=== PATIENT | male | born 1990 | race African-American/Black ===

== ENCOUNTER 2018-06-02 18:48 | Emergency (ER) | payer OTHER ==
--- NOTE | 2018-06-02 19:09 | PDOC ---
Rapid Medical Evaluation Time Seen by Provider: 06/02/18 19:07 Medical Evaluation: Allergies Allergy/AdvReac Type Severity Reaction Status Date / Time No Known Allergies Allergy Verified 06/02/18 18:53 06/02/18 19:07 I have performed a brief in-person evaluation of this patient. The patient presents with a chief complaint of:Chest pain and cough started when driving Pertinent physical exam findings:NAD Chest clear I have ordered the following:nothing The patient will proceed to the ED for further evaluation. Discharge Disposition - Diagnosis Chest pain - Referrals - Patient Instructions - Post Discharge Activity
[2018-06-02 19:10] VITALS: BP 131/71; PULSE 84; TEMP 98.4; BMI 21.9
--- NOTE | 2018-06-02 19:16 | PDOC ---
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 This has never happened before. the LUE radiation was gone after 10 min but the mild cp persists, alleviated by lying flat and aggravated by sitting up, he also reports a dry cough that developed today. He denies palpitations, lightheadedness, n/v, diaphoresis, sob, cough, abd pain, edema, f/ c. No cardiac history or history of sudden in his family. denies illicit drug use, reports occasional beer consumption and nicotine vaping. 06/02/18 19:55 06/02/18 19:57 06/02/18 20:33 06/02/18 20:37 <Naomy Reece - Last Filed: 06/02/18 23:13> - General Chief Complaint: Chest Pain Stated Complaint: CHEST PAIN Time Seen by Provider: 06/02/18 19:07 Past History <Mari Amaral - Last Filed: 06/02/18 22:48> - Past Medical History Asthma: Yes COPD: No - Suicide/Smoking/Psychosocial Hx Smoking History: Never smoked <Naomy Reece - Last Filed: 06/02/18 23:13> - Past Medical History Allergies/Adverse Reactions: Allergies Allergy/AdvReac Type Severity Reaction Status Date / Time aspirin Allergy Verified 06/02/18 19:07 Home Medications: Ambulatory Orders Albuterol Sulfate Inhaler - [Ventolin Hfa Inhaler -] 1 - 2 inh PO Q4H 06/02/18 Review of Systems - Review of Systems Able to Perform ROS?: Yes Is the patient limited Greek proficient: No Constitutional: No: Chills, Fever HEENTM: No: Nose Congestion, Throat Pain Respiratory: No: Cough, Orthopnea, SOB with Exertion, SOB at Rest Cardiac (ROS): Yes: Chest Pain. No: Edema, Irregular Heart Rate, Lightheadedness, Palpitations, Syncope ABD/GI: No: Abdominal Distended, Constipated, Diarrhea, Nausea, Vomiting : No: Dysuria Musculoskeletal: No: Back Pain Neurological: No: Headache, Numbness, Paresthesia Psychiatric: No: Anxiety Hematologic/Lymphatic: No: Anemia, Blood Clots <Naomy Reece - Last Filed: 06/02/18 23:13> *Physical Exam - Vital Signs Last Vital Signs Temp Pulse Resp BP Pulse Ox 98.4 F 84 18 131/71 100 06/02/18 19:08 06/02/18 19:08 06/02/18 19:08 06/02/18 19:08 06/02/18 19:08 <Mari Amaral - Last Filed: 06/02/18 22:48> - Vital Signs Last Vital Signs Temp Pulse Resp BP Pulse Ox 98.4 F 84 18 131/71 100 06/02/18 19:08 06/02/18 19:08 06/02/18 19:08 06/02/18 19:08 06/02/18 19:08 - Physical Exam General Appearance: Yes: Nourished, Appropriately Dressed. No: Apparent Distress HEENT: positive: EOMI, Normal Voice, Symmetrical. negative: Scleral Icterus (R) , Scleral Icterus (L) Neck: positive: Trachea midline, Supple. negative: Tender Respiratory/Chest: positive: Lungs Clear, Normal Breath Sounds Cardiovascular: positive: Regular Rhythm, Regular Rate, S1, S2. negative: Edema , JVD, Murmur Gastrointestinal/Abdominal: positive: Normal Bowel Sounds, Flat, Soft. negative : Tender, Pulsatile Mass, Rebound, Tenderness, Mass Musculoskeletal: negative: CVA Tenderness Integumentary: positive: Dry, Warm Neurologic: positive: medical authorization specialist II-XII NML intact (grossly ) <Naomy Reece - Last Filed: 06/02/18 23:13> Moderate Sedation - Procedure Monitoring Vital Signs: Procedure Monitoring Vital Signs Temperature 98.4 F 06/02/18 19:08 Pulse Rate 84 06/02/18 19:08 Respiratory Rate 18 06/02/18 19:08 Blood Pressure 131/71 06/02/18 19:08 O2 Sat by Pulse Oximetry (%) 100 06/02/18 19:08 <Mari Amaral - Last Filed: 06/02/18 22:48> - Procedure Monitoring Vital Signs: Procedure Monitoring Vital Signs Temperature 98.4 F 06/02/18 19:08 Pulse Rate 84 06/02/18 19:08 Respiratory Rate 18 06/02/18 19:08 Blood Pressure 131/71 06/02/18 19:08 O2 Sat by Pulse Oximetry (%) 100 06/02/18 19:08 <Naomy Reece - Last Filed: 06/02/18 23:13> ED Treatment Course - LABORATORY CBC & Chemistry Diagram: 06/02/18 19:34 06/02/18 19:34 - ADDITIONAL ORDERS Additional order review: Laboratory Results 06/02/18 06/02/18 06/02/18 22:01 20:42 19:34 PT with INR 11.60 INR 0.98 PTT (Actin FS) 30.8 D-Dimer < 215 Sodium Potassium Chloride Carbon Dioxide Anion Gap BUN Creatinine Creat Clearance w eGFR Random Glucose Calcium Total Bilirubin AST ALT Alkaline Phosphatase Creatine Kinase Creatine Kinase Index CK-MB (CK-2) Troponin I < 0.02 Total Protein Albumin Lipase 06/02/18 19:34 PT with INR INR PTT (Actin FS) D-Dimer Sodium 136 Potassium 5.1 Chloride 104 Carbon Dioxide 30 Anion Gap 3 L BUN 17 Creatinine 0.9 Creat Clearance w eGFR > 60 Random Glucose 82 Calcium 9.1 Total Bilirubin 0.3 AST 41 H ALT 23 Alkaline Phosphatase 73 Creatine Kinase 330 H Creatine Kinase Index 0.3 CK-MB (CK-2) < 1.0 Troponin I < 0.02 Total Protein 8.1 Albumin 4.4 Lipase 179 06/02/18 19:34 RBC 6.02 H MCV 70.8 L MCHC 33.4 RDW 15.4 MPV 9.4 Neutrophils % 74.8 Lymphocytes % 17.0 Monocytes % 5.6 Eosinophils % 2.2 Basophils % 0.4 - RADIOLOGY Radiology Studies Ordered: Category Date Time Status CHEST PA & LAT [RAD] Stat Radiology 06/02/18 19:16 Taken - Medications Given in the ED: ED Medications Discontinued Medications Generic Name Dose Route Start Last Admin Trade Name Freq PRN Reason Stop Dose Admin Albuterol/Ipratropium 1 amp 06/02/18 20:24 06/02/18 20:38 Duoneb - NEB 06/02/18 20:25 1 amp ONCE ONE Administration Sodium Chloride 1,000 ml 06/02/18 20:40 06/02/18 20:52 Normal Saline - IV 06/02/18 20:41 1,000 ml ONCE ONE Administration <Mari Amaral - Last Filed: 06/02/18 22:48> - LABORATORY CBC & Chemistry Diagram: 06/02/18 19:34 06/02/18 19:34 - ADDITIONAL ORDERS Additional order review: 06/02/18 19:59 EKG NS, findings consistent with j point early repolarization CXR unremarkable no cardiomegaly 06/02/18 21:32 labs unremarkable, ddimer wnl, trop negative x 2, repeat EKG no change will dc home but would like patient to get an outpatient tte 06/02/18 22:53 <Naomy Reece - Last Filed: 06/02/18 23:13> *DC/Admit/Observation/Transfer <CristinMari - Last Filed: 06/02/18 22:48> - Discharge Dispostion Decision to Admit order: No <Naomy Reece - Last Filed: 06/02/18 23:13> Diagnosis at time of Disposition: Atypical chest pain Chest pain Qualifiers: Chest pain type: unspecified Qualified Code(s): R07.9 - Chest pain, unspecified - Discharge Dispostion Disposition: HOME Condition at time of disposition: Good - Referrals Referrals: Ermelinda Joyner MD [Staff Physician] - Santos Flores MD [Staff Physician] - - Patient Instructions Additional Instructions: your chest pain want not cardiac in nature based on our workup, however, due to a slightly unusual EKG, we would like you to follow up in our clinic and get an echocardiogram (ultrasound of the heart) to make sure nothing is missed. You will find a referral in your discharge papers. Please return to ED if symptoms return Get a ECHOCARDIOGRAM - Post Discharge Activity Forms/Work/School Notes: Back to Work
--- NOTE | 2018-06-02 19:37 | PDOC ---
Attending Attestation - [facility] HPI: 06/02/18 19:53 The patient is a 27 year old male, with a significant PMH of asthma, who presents to the emergency department via EMS complaining of mid sternal chest pain. The patient states he was driving home [facility] when he began to experience the midsternal chest pain, radiating to the left arm and left side of his back, with no exacerbating or remitting factors. The patient also endorses minimal lightheadedness and tingling sensation. The patient states he is also experiencing a slight cough at the moment. The patient states at presentation, the pain is currently on the left side of his chest. The patient denies pleuritic pain. However, he states when he coughs he experiences a sharp pain. The patient states he vapes and smokes recreational marijuana. The patient states he does not actively exercise. The patient denies any family history of cardiac disease. However, the patient states he does have a uncle who experienced sudden around his age but is unsure of the cause. The patient denies shortness of breath, headache and dizziness. Denies fever, chills, nausea, vomit, diarrhea and constipation. Denies dysuria, frequency, urgency and hematuria. Allergies: aspirin Documentation prepared by Shiva Lucero, acting as medical office manager for Mari Amaral MD. - Physicial Exam PE: 06/02/18 19:53 GENERAL: Awake, alert, and fully oriented, in no acute distress HEAD: No signs of trauma EYES: PERRLA, EOMI, sclera anicteric, conjunctiva clear ENT: Auricles normal inspection, hearing grossly normal, nares patent, oropharynx clear without exudates. Moist mucosa NECK: Normal ROM, supple, no lymphadenopathy, JVD, or masses LUNGS: Breath sounds equal, clear to auscultation bilaterally. No wheezes, and no crackles HEART: Regular rate and rhythm, normal S1 and S2, no murmurs, rubs or gallops ABDOMEN: Soft, nontender, normoactive bowel sounds. No guarding, no rebound. No masses EXTREMITIES: Normal range of motion, no edema. No clubbing or cyanosis. No cords, erythema, or tenderness NEUROLOGICAL: Cranial nerves II through XII grossly intact. Normal speech, normal gait SKIN: Warm, Dry, normal turgor, no rashes or lesions noted. <Shiva Lucero - Last Filed: 06/02/18 20:11> - Resident Resident Name: Naomy Recee - ED Attending Attestation I have performed the following: I have examined & evaluated the patient, The case was reviewed & discussed with the resident, I agree w/resident's findings & plan - Medical Decision Making 06/02/18 19:37 CXR: NSR EKG: st elevation in v1-v6 likely j point. 06/02/18 20:39 P's CPK is slightly elevated. However trop is normal. Pt has a low MCV and MCH; however Hb?HCT normal 06/02/18 20:41 Pt is refusing meds for pain; he wants to leave the hospital. Pt was convinced to remain in the ER for a 2nd cardoac enzyme and a 2nd EKG. 06/02/18 22:02 D dimer normal, and CK-MB and index are normal. Pending 2nd cardiac enzyme and 2nd EKG. 06/03/18 00:31 2nd card enz normal. Pt advised to follow with cardiology as an outpatient, advised to get echocardiogram. Advised not to do heavy work until the echo is done to rule out structural heart disease. Unofficial bedside sono shows no hypertrophic moran in the heart. <Mari Amaral - Last Filed: 06/03/18 00:32>
[2018-06-02 20:06] LABS: INR 0.98 (0.83-1.09); PROTHROMBIN TIME (PATIENT) 11.6 SEC (9.7-13.0)
[2018-06-02 20:09] LABS: ACTIVATED PTT 30.8 SECONDS (25.2-36.5)
[2018-06-02 20:10] LABS: BASO % 0.4 % (0-2.0); EOS % 2.2 % (0-4.5); HEMATOCRIT 42.6 % (35.4-49); HEMOGLOBIN 14.2 GM/dL (11.7-16.9); MCH 23.6 pg (25.7-33.7); MCHC 33.4 g/dl (32.0-35.9); MEAN CELL VOLUME 70.8 fl (80-96); MEAN PLT VOLUME 9.4 fl (7.5-11.1); MONO % 5.6 % (3.8-10.2); NEUT % 74.8 % (42.8-82.8); PLATELET COUNT 194 K/MM3 (134-434); RBC 6.02 M/mm3 (4.00-5.60); RDW 15.4 % (11.9-15.9); WHITE BLOOD COUNT 7.5 K/mm3 (4.0-10.0)
[2018-06-02] MEDS ORDERED: ALBUTEROL SO4 2.5/IPRATROPIUM 0.5 INH SOL 3 ML VIAL.NEB. NEB ONE ×2 (20:24→20:35)
[2018-06-02 20:31] LABS: ALBUMIN 4.4 g/dl (3.4-5.0); ALK PHOS 73 U/L (45-117); ANION GAP 3 MMOL/L (8-16); BILIRUBIN,TOTAL 0.3 mg/dL (0.2-1); BLOOD UREA NITROGEN 17 mg/dL (7-18); CALCIUM 9.1 mg/dL (8.5-10.1); CHLORIDE 104 mmol/L (98-107); CO2 30 mmol/L (21-32); CREATININE 0.9 mg/dL (0.55-1.3); GLUCOSE,RANDOM 82 mg/dL (74-106); LIPASE 179 U/L (73-393); SGOT/AST 41 U/L (15-37); SGPT/ALT 23 U/L (13-61); SODIUM 136 mmol/L (136-145); TOT PROT 8.1 g/dl (6.4-8.2)
[2018-06-02] MEDS ORDERED: SODIUM CHLORIDE 0.9% 500 ML INFUS.BAG IV ONE (20:40)
[2018-06-02 20:45] LABS: POTASSIUM 5.1 mmol/L (3.5-5.1)
--- NOTE | 2018-06-03 14:40 | EKG ---
Test Reason : Blood Pressure : / mmHG Vent. Rate : 092 BPM Atrial Rate : 092 BPM P-R Int : 166 ms QRS Dur : 086 ms QT Int : 320 ms P-R-T Axes : 064 071 061 degrees QTc Int : 395 ms NORMAL SINUS RHYTHM NORMAL ECG NO PREVIOUS ECGS AVAILABLE Confirmed by Aorn Boucher MD ([id number]) on 06/03/2018 2:40:11 PM Referred By: Confirmed By:Aron Boucher MD
--- NOTE | 2018-06-03 14:41 | EKG ---
Test Reason : Blood Pressure : / mmHG Vent. Rate : 080 BPM Atrial Rate : 080 BPM P-R Int : 158 ms QRS Dur : 088 ms QT Int : 352 ms P-R-T Axes : 070 072 063 degrees QTc Int : 405 ms NORMAL SINUS RHYTHM MINIMAL VOLTAGE CRITERIA FOR LVH, MAY BE NORMAL VARIANT BORDERLINE ECG NO PREVIOUS ECGS AVAILABLE Confirmed by Aron Boucher MD ([id number]) on 06/03/2018 2:40:59 PM Referred By: Confirmed By:Aron Boucher MD
== END 2018-06-02 23:14 | disposition home or self-care (01) ==
LOC: JER 18:48
PROC: 3E0F7GC Introduction of Other Therapeutic Substance into Respiratory Tract, Via Natural or Artificial Opening (ICD-10-PCS; principal; 2018-06-02)
DX: R07.9 Chest pain, unspecified (principal)
CPT/HCPCS: 36415; 71046-TC-FY; 80053; 82550; 82553; 83690; 84484; 85025; 85379; 85610; 85730; 93005; 93010; 99283-25